=== PATIENT | female | born 1945 | race Caucasian/White ===

== ENCOUNTER 2019-12-18 05:55 | Day surgery (SDC) | payer MEDICARE, OTHER ==
[2019-12-18] MEDS ORDERED: Sodium Chloride 0.9% 10 ML Syringe FLUSH ONE (06:30)
--- NOTE | 2019-12-18 12:15 | OR ---
DATE OF PROCEDURE: 12/18/2019 SURGEON: Mely Hudson MD POSTOPERATIVE CARE: Postoperative care will be provided mainly at the [address] [place] [address] [facility] in conjunction with [facility]. PREOPERATIVE DIAGNOSIS: Cataract, right eye. POSTOPERATIVE DIAGNOSIS: Cataract, right eye. PROCEDURE: Phacoemulsification with intraocular lens placement, right eye. ANESTHESIA: Topical and intracameral. ESTIMATED BLOOD LOSS: Minimal. COMPLICATIONS: None. PATHOLOGY SPECIMENS: None. SURGICAL FINDINGS: None. INDICATION FOR PROCEDURE: The patient is a 74-year-old female with history of a visually significant cataract in the right eye, which interfered with activities of daily living. This consisted of a nuclear sclerosis cataract. Following careful discussion of the risks, benefits and alternatives to cataract extraction with intraocular lens placement including blindness and , the patient elected to proceed, and informed, written consent was obtained prior to the procedure. DESCRIPTION OF THE PROCEDURE: The patient was previously identified, and a mona placed above the right eye. All sources, including the patient, indicated that the right eye was the correct eye. The patient was subsequently taken to the operating room where standard monitors were applied. The patient was then prepped and draped in the usual sterile fashion for ophthalmic surgery. Attention was first directed at the 12 o'clock position where a paracentesis port was fashioned. Shugar solution followed by Viscoat was instilled into the eye. Attention was then directed to the 8:30 position where a triplanar incision was made in a near-clear manner using a keratome. A continuous capsulorrhexis was then made using a combination of the cystotome and Utrata forceps. Hydrodissection was achieved using a balanced salt solution, and the lens rotated nicely. Phacoemulsification was then done using a modified kjguzd-nuc-[id number] technique without complication. Phaco time was 12.39 CDE. The remaining cortex was removed using the irrigation/aspiration handpiece. Provisc was then instilled into the eye. A Technis lens, model [id number], at 19.5 diopters was then placed in the capsular bag using an [place] injector. The remaining viscoelastic was removed using the irrigation/aspiration forceps. All wounds were then checked and found to be watertight. The lid speculum and drapes were removed. Maxitrol ointment was placed in the patient's right eye, and the eye was shielded. The patient tolerated the procedure well. The patient was instructed to follow up tomorrow. All needle and sponge counts were correct at the end of the procedure. Mely Hudson MD /[id number]
== END 2019-12-18 07:56 | disposition home or self-care (01) ==
LOC: JP.SDS 05:55
PROVIDERS: ATTEND Ophthalmology
DX: H25.11 Age-related nuclear cataract, right eye (principal); F17.200 Nicotine dependence, unspecified, uncomplicated; Z88.5 Allergy status to narcotic agent
CPT/HCPCS: 66984; V2632

== ENCOUNTER 2020-01-08 08:58 | Day surgery (SDC) | payer MEDICARE ==
[2020-01-08] MEDS ORDERED: Sodium Chloride 0.9% 10 ML Syringe FLUSH ONE (09:30)
--- NOTE | 2020-01-08 14:15 | OR ---
DATE OF PROCEDURE: 01/08/2020 SURGEON: Mely Hudson MD POSTOPERATIVE CARE: Postoperative care will be provided mainly at the [address] [place] [address] [facility] in conjunction with [facility]. PREOPERATIVE DIAGNOSIS: Cataract, left eye. POSTOPERATIVE DIAGNOSIS: Cataract, left eye. PROCEDURE: Phacoemulsification with intraocular lens placement, left eye. ANESTHESIA: Topical and intracameral. ESTIMATED BLOOD LOSS: Minimal. COMPLICATIONS: None. PATHOLOGY SPECIMENS: None. SURGICAL FINDINGS: None. INDICATION FOR PROCEDURE: The patient is a 74-year-old female with history of a visually significant cataract in the left eye, which interfered with activities of daily living. This consisted of a nuclear sclerosis cataract. Following careful discussion of the risks, benefits and alternatives to cataract extraction with intraocular lens placement including blindness and , the patient elected to proceed, and informed, written consent was obtained prior to the procedure. DESCRIPTION OF THE PROCEDURE: The patient was previously identified, and a mona placed above the left eye. All sources, including the patient, indicated that the left eye was the correct eye. The patient was subsequently taken to the operating room where standard monitors were applied. The patient was then prepped and draped in the usual sterile fashion for ophthalmic surgery. Attention was first directed at the 12 o'clock position where a paracentesis port was fashioned. Shugar solution followed by Viscoat was instilled into the eye. Attention was then directed to the 8:30 position where a triplanar incision was made in a near-clear manner using a keratome. A continuous capsulorrhexis was then made using a combination of the cystotome and Utrata forceps. Hydrodissection was achieved using a balanced salt solution, and the lens rotated nicely. Phacoemulsification was then done using a modified [id number]-pad-mvypzii technique without complication. Phaco time was 11.66 CDE. The remaining cortex was removed using the irrigation/aspiration handpiece. Provisc was then instilled into the eye. A Technis lens, model [id number], at 18.0 diopters was then placed in the capsular bag using an [place] injector. The remaining viscoelastic was removed using the irrigation/aspiration forceps. All wounds were then checked and found to be watertight. The lid speculum and drapes were removed. Maxitrol ointment was placed in the patient's left eye, and the eye was shielded. The patient tolerated the procedure well. The patient was instructed to follow up tomorrow. All needle and sponge counts were correct at the end of the procedure. Mely Hudson MD /[id number]
== END 2020-01-08 10:02 | disposition home or self-care (01) ==
LOC: JP.SDS 08:58
PROVIDERS: ATTEND Ophthalmology
DX: H25.12 Age-related nuclear cataract, left eye (principal); E78.5 Hyperlipidemia, unspecified; F17.200 Nicotine dependence, unspecified, uncomplicated; Z88.5 Allergy status to narcotic agent
CPT/HCPCS: 66984; V2632

== ENCOUNTER 2023-01-22 06:42 | Day surgery (SDC) | payer MEDICARE ==
[2023-01-22] MEDS ORDERED: Bupivacaine 0.5% 50 ML MDV ONE (06:45)
[2023-01-22] MEDS ORDERED: Lidocaine 1% with EPINEPHrine 1:100,000 50 ML MDV ONE (06:46)
[2023-01-22] MEDS ORDERED: Propofol 200 MG/20 ML SDV ONE ×2 (06:51→09:20)
[2023-01-22] MEDS ORDERED: fentaNYL 100 MCG/2 ML SDV ONE (06:51)
[2023-01-22] MEDS ORDERED: Midazolam 1 MG/ML 2 ML SDV ONE (06:51)
[2023-01-22] MEDS ORDERED: Dextrose 5%-Lactated Ringers 1,000 ML IV SCH (07:30)
[2023-01-22] MEDS ORDERED: ceFAZolin 2 GM in Premix Bag 1 BAG IV ONE (08:30)
[2023-01-22] MEDS ORDERED: Linezolid 600 MG/300 ML Premix Bag ONE (09:21)
== END 2023-01-22 11:15 | disposition home or self-care (01) ==
LOC: JP.SDS 06:42
PROVIDERS: ATTEND Surgery
DX: Z45.2 Encounter for adjustment and management of vascular access device (principal); C34.90 Malignant neoplasm of unspecified part of unspecified bronchus or lung; I10 Essential (primary) hypertension; F17.200 Nicotine dependence, unspecified, uncomplicated; Z88.5 Allergy status to narcotic agent; Z86.73 Personal history of transient ischemic attack (TIA), and cerebral infarction without residual deficits
CPT/HCPCS: 36561; 77001; C1788; J0690; J1642; J2020; J2250; J2704; J3010; J3490; J7121

== ENCOUNTER 2023-04-30 14:53 | Emergency (ER) | payer MEDICARE ==
[2023-04-30] MEDS ORDERED: Apixaban 5 MG Tab PO ONE (19:15)
== END 2023-04-30 19:41 | disposition home or self-care (01) ==
LOC: JP.ED 14:53
DX: I82.402 Acute embolism and thrombosis of unspecified deep veins of left lower extremity (principal); Z85.118 Personal history of other malignant neoplasm of bronchus and lung; I10 Essential (primary) hypertension; Z90.710 Acquired absence of both cervix and uterus; Z88.5 Allergy status to narcotic agent; Z79.82 Long term (current) use of aspirin; Z79.84 Long term (current) use of oral hypoglycemic drugs; Z79.899 Other long term (current) drug therapy; Z87.891 Personal history of nicotine dependence
CPT/HCPCS: 36415; 85379; 93970; 99284; A9270-GY

== ENCOUNTER 2023-05-04 21:28 | Inpatient (IN) | payer MEDICARE ==
[2023-05-04] MEDS ORDERED: Naloxone 0.4 MG/ML SDV IVPUSH PRN (21:52)
[2023-05-04] MEDS ORDERED: fentaNYL 50 MCG/ML SDV IVPUSH ONE ×2 (21:52→22:17)
[2023-05-04 22:06] LABS: BASOPHILS ABSOLUTE AUTO 0.04 K/uL (0.00-0.10); BASOPHILS PERCENT AUTO 0.5 % (0.1-1.3); EOSINOPHILS ABSOLUTE AUTO 0.14 K/uL (0.00-0.40); EOSINOPHILS PERCENT AUTO 1.8 % (0.0-5.4); HEMATOCRIT 33.3 % (34.3-46.0); HEMOGLOBIN 10.7 g/dL (11.2-15.5); IMMATURE GRAN ABSOLUTE AUTO 0.03 K/uL (0.00-0.23); IMMATURE GRAN PERCENT AUTO 0.4 % (0.0-0.7); LYMPHOCYTES ABSOLUTE AUTO 1.47 K/uL (0.8-3.3); MEAN CORPUSCULAR HEMOGLOBIN 29.1 pg (31.6-35.5); MEAN CORPUSCULAR HGB CONC 32.1 g/dL (31.6-35.5); MEAN CORPUSCULAR VOLUME 90.5 fL (81.4-99.0); MONOCYTES ABSOLUTE AUTO 0.92 K/uL (0.20-0.90); MONOCYTES PERCENT AUTO 11.9 % (3.3-12.6); NEUTROPHILS ABSOLUTE AUTO 5.14 K/uL (1.0-7.6); NEUTROPHILS PERCENT AUTO 66.4 % (40.0-78.1); PLATELET COUNT,PLT 278 K/uL (130-375); RED BLOOD CELL COUNT 3.68 M/uL (3.77-5.24); WHITE BLOOD CELL COUNT,WBC 7.7 K/uL (3.2-11.0)
[2023-05-04 22:22] LABS: INR 1.2; PROTHROMBIN TIME 11.6 sec (9.2-10.6)
[2023-05-04 22:30] LABS: ALANINE AMINOTRANSFERASE,ALT 43 U/L (12-78); ALBUMIN 3.5 g/dL (3.4-5.0); ALKALINE PHOSPHATASE 117 U/L (46-116); ANION GAP 16.4 mmol/L (5.0-14.0); ASPARTATE AMNIOTRANSFERASE,AST 20 U/L (15-37); BILIRUBIN TOTAL 0.3 mg/dL (0.2-1.0); BLOOD UREA NITROGEN,BUN 16 mg/dL (7-18); C-REACTIVE PROTEIN 1.26 mg/dL (<0.50); CARBON DIOXIDE,CO2 25 mmol/L (21-32); CHLORIDE,CL 100 mmol/L (100-108); CREATININE 0.7 mg/dL (0.6-1.0); EST CRCL DRUG DOSING (CG) 51.59 mL/min; ESTIMATED GFR 90 mL/min (>60); GLUCOSE RANDOM 119 mg/dL (74-106); POTASSIUM,K 4.4 mmol/L (3.6-5.2); SODIUM,NA 137 mmol/L (140-148); TROPONIN I HIGH SENSITIVITY 10.2 pg/mL (<=60.3)
[2023-05-04] MEDS ORDERED: Iopamidol 755 Mg/ML 100 ML Bottle IV SCH (22:45)
[2023-05-04] MEDS ORDERED: Sodium Chloride 0.9% 100 ML IV SCH (22:45)
[2023-05-04 23:01] LABS: APPEARANCE,URINE CLOUDY (CLEAR); BILIRUBIN,URINE NEGATIVE (NEGATIVE); COLOR,URINE YELLOW (YELLOW); GLUCOSE,URINE NEGATIVE (NEGATIVE); KETONES,URINE NEGATIVE (NEGATIVE); LEUKOCYTE ESTERASE,URINE MODERATE (NEGATIVE); NITRITE,URINE POSITIVE (NEGATIVE); OCCULT BLOOD,URINE SMALL (NEGATIVE); PH,URINE 5.5 (5.0-8.0); PROTEIN,URINE 30 mg/dL (NEGATIVE); UROBILINOGEN,URINE 0.2 EU/dL (0.2-1.0)
[2023-05-04] MEDS ORDERED: Ondansetron 4 MG/2 ML SDV IVPUSH ONE (23:13)
[2023-05-04 23:14] LABS: AMORPHOUS SEDIMENT,URINE NOT SEEN; BACTERIA,URINE MANY; EPITHELIAL CELLS,URINE FEW; MUCUS,URINE NOT SEEN; RBC,URINE 0-5 (0-5); WBC,URINE >100 (0-5)
[2023-05-05] MEDS ORDERED: Scopalamine 1mg/3day Transdermal Patch TOP ONE (00:29)
[2023-05-05] MEDS ORDERED: Lisinopril 10 MG Tab PO STA (00:30)
[2023-05-05] MEDS ORDERED: Metoprolol Tartrate 25 MG Tab PO STA (00:30)
[2023-05-05] MEDS ORDERED: fentaNYL 50 MCG/ML SDV IVPUSH ONE (00:30)
[2023-05-05] MEDS ORDERED: Metoclopramide 10 MG/2 ML SDV IVPUSH ONE (00:30)
[2023-05-05 00:53] LABS: CORONAVIRUS COVID-19 NAA NEGATIVE (NEGATIVE); INFLUENZA A NAA NEGATIVE (NEGATIVE); INFLUENZA B NAA NEGATIVE (NEGATIVE); RESPIRATORY SYNCYTIAL VIR NAA NEGATIVE (NEGATIVE)
[2023-05-05] MEDS ORDERED: Melatonin 3 MG Tab PO PRN (02:22)
[2023-05-05] MEDS ORDERED: Ondansetron 4 MG/2 ML SDV IV PRN (02:22)
[2023-05-05] MEDS ORDERED: Acetaminophen 325 MG Tab PO PRN (02:22)
[2023-05-05] MEDS ORDERED: Magnesium Hydroxide 400 MG/5 ML Susp 30 ML Cup PO PRN (02:22)
[2023-05-05] MEDS ORDERED: Ondansetron 4 MG Tab.DIS PO PRN (02:22)
[2023-05-05] MEDS ORDERED: traMADol 50 MG Tab PO PRN (02:39)
[2023-05-05] MEDS ORDERED: Enoxaparin 80 MG/0.8 ML Syringe SUBCUT ONE (02:45)
[2023-05-05] MEDS ORDERED: Piperacillin/Tazobactam 3.375 GM in Sodium Chloride 0.9% 50 ML IV SCH (03:00)
[2023-05-05] MEDS: fentaNYL 100 MCG/2 ML SDV IVPUSH PRN ×3 (03:14→21:01)
[2023-05-05] MEDS ORDERED: Metoclopramide 10 MG/2 ML SDV IVPUSH SCH (03:30)
[2023-05-05] MEDS ORDERED: Metoclopramide 10 MG/2 ML SDV IVPUSH PRN (03:35)
[2023-05-05 04:50] LABS: HEMATOCRIT 33.6 % (34.3-46.0); HEMOGLOBIN 10.9 g/dL (11.2-15.5); MEAN CORPUSCULAR HEMOGLOBIN 29.5 pg (31.6-35.5); MEAN CORPUSCULAR HGB CONC 32.4 g/dL (31.6-35.5); MEAN CORPUSCULAR VOLUME 91.1 fL (81.4-99.0); RED BLOOD CELL COUNT 3.69 M/uL (3.77-5.24); WHITE BLOOD CELL COUNT,WBC 8.2 K/uL (3.2-11.0)
[2023-05-05] MEDS: Labetalol 20 MG/4 ML Syringe IVPUSH PRN ×3 (04:59→15:58)
[2023-05-05 05:07] LABS: CALCIUM 8.8 mg/dL (8.5-10.1); CREATININE 0.6 mg/dL (0.6-1.0); EST CRCL DRUG DOSING (CG) 60.19 mL/min; POTASSIUM,K 3.9 mmol/L (3.6-5.2)
[2023-05-05 05:15] LABS: ANION GAP 15.9 mmol/L (5.0-14.0)
[2023-05-05] MEDS: Methocarbamol 500 MG Tab PO SCH ×4 (07:43→21:05)
[2023-05-05] MEDS: Pantoprazole 40 MG Tab.CR PO SCH (07:43)
[2023-05-05] MEDS: Lactobacillus Rhamnosus GG (Probiotic) Cap PO SCH ×2 (08:10→20:54)
[2023-05-05] MEDS: Metoprolol Tartrate 25 MG Tab PO SCH ×2 (08:10→20:55)
[2023-05-05] MEDS: Check scopolamine patch SCH (08:12)
[2023-05-05] MEDS: Lisinopril 10 MG Tab PO SCH (08:13)
[2023-05-05] MEDS: Oxybutynin 5 MG Tab PO SCH ×3 (08:13→21:05)
[2023-05-05] MEDS ORDERED: Piperacillin/Tazobactam/Dext 3.375 GM in Premix Bag 1 BAG IV SCH (09:00)
[2023-05-05] MEDS: cefTRIAXone 1 GM in Sodium Chloride 0.9% 50 ML IV SCH (10:42)
[2023-05-05] MEDS ORDERED: Warfarin 2.5 MG Tab PO ONE (13:00)
[2023-05-05] MEDS: Phenazopyridine 95 MG Tab PO SCH ×2 (13:32→18:18)
[2023-05-05] MEDS: Enoxaparin 80 MG/0.8 ML Syringe SUBCUT SCH (17:00)
[2023-05-05] MEDS: Acetaminophen 500 MG Tab PO SCH (20:56)
[2023-05-05] MEDS: diphenhydrAMINE 25 MG Cap PO SCH (21:07)
[2023-05-06 05:27] LABS: INR 1.2; PROTHROMBIN TIME 11.9 sec (9.2-10.6)
[2023-05-06] MEDS: Enoxaparin 80 MG/0.8 ML Syringe SUBCUT SCH ×2 (05:45→17:56)
[2023-05-06] MEDS: Methocarbamol 500 MG Tab PO SCH ×4 (06:39→22:18)
[2023-05-06] MEDS: Phenazopyridine 95 MG Tab PO SCH ×3 (08:02→17:57)
[2023-05-06] MEDS: Metoprolol Tartrate 25 MG Tab PO SCH ×2 (08:02→22:18)
[2023-05-06] MEDS: Lactobacillus Rhamnosus GG (Probiotic) Cap PO SCH ×2 (08:02→22:18)
[2023-05-06] MEDS: Pantoprazole 40 MG Tab.CR PO SCH (08:02)
[2023-05-06] MEDS: Oxybutynin 5 MG Tab PO SCH ×3 (08:02→22:18)
[2023-05-06] MEDS: Lisinopril 10 MG Tab PO SCH (08:02)
[2023-05-06] MEDS: Check scopolamine patch SCH (08:03)
[2023-05-06] MEDS: cefTRIAXone 1 GM in Sodium Chloride 0.9% 50 ML IV SCH (11:23)
[2023-05-06] MEDS: oxyCODONE 5 MG Tab PO PRN ×2 (12:01→16:05)
[2023-05-06] MEDS ORDERED: Warfarin 2.5 MG Tab PO ONE (13:00)
[2023-05-06] MEDS: Sennosides/Docusate Sodium 50-8.6 MG Tab PO PRN (15:45)
[2023-05-06] MEDS: fentaNYL 100 MCG/2 ML SDV IVPUSH PRN (19:44)
[2023-05-06] MEDS: Acetaminophen 500 MG Tab PO SCH (22:18)
[2023-05-06] MEDS: diphenhydrAMINE 25 MG Cap PO SCH (22:18)
[2023-05-07] MEDS: oxyCODONE 5 MG Tab PO PRN ×4 (02:14→20:20)
[2023-05-07] MEDS: Enoxaparin 80 MG/0.8 ML Syringe SUBCUT SCH ×2 (06:08→17:34)
[2023-05-07] MEDS: Methocarbamol 500 MG Tab PO SCH ×4 (06:10→22:05)
[2023-05-07 07:06] LABS: INR 1.7; PROTHROMBIN TIME 16.3 sec (9.2-10.6)
[2023-05-07] MEDS: Lactobacillus Rhamnosus GG (Probiotic) Cap PO SCH ×2 (08:46→22:05)
[2023-05-07] MEDS: Metoprolol Tartrate 25 MG Tab PO SCH ×2 (08:46→22:04)
[2023-05-07] MEDS: Phenazopyridine 95 MG Tab PO SCH (08:47)
[2023-05-07] MEDS: Lisinopril 10 MG Tab PO SCH (08:47)
[2023-05-07] MEDS: Check scopolamine patch SCH (08:47)
[2023-05-07] MEDS: Oxybutynin 5 MG Tab PO SCH ×3 (08:47→22:05)
[2023-05-07] MEDS: Pantoprazole 40 MG Tab.CR PO SCH (08:48)
[2023-05-07] MEDS: Cephalexin 250 MG Cap PO SCH ×2 (08:48→22:05)
[2023-05-07] MEDS: fentaNYL 100 MCG/2 ML SDV IVPUSH PRN ×2 (12:37→22:46)
[2023-05-07] MEDS ORDERED: Warfarin 5 MG Tab PO SCH (13:00)
[2023-05-07] MEDS ORDERED: Scopalamine 1mg/3day Transdermal Patch TRDERM SCH (21:00)
[2023-05-07] MEDS: Acetaminophen 500 MG Tab PO SCH (22:05)
[2023-05-07] MEDS: diphenhydrAMINE 25 MG Cap PO SCH (22:06)
[2023-05-08] MEDS: Enoxaparin 80 MG/0.8 ML Syringe SUBCUT SCH (05:24)
[2023-05-08] MEDS: Methocarbamol 500 MG Tab PO SCH ×4 (05:26→21:16)
[2023-05-08] MEDS: oxyCODONE 5 MG Tab PO PRN ×4 (05:31→19:55)
[2023-05-08 06:01] LABS: HEMATOCRIT 29.6 % (34.3-46.0); HEMOGLOBIN 9.6 g/dL (11.2-15.5); MEAN CORPUSCULAR HEMOGLOBIN 29.5 pg (31.6-35.5); MEAN CORPUSCULAR HGB CONC 32.4 g/dL (31.6-35.5); MEAN CORPUSCULAR VOLUME 91.1 fL (81.4-99.0); RED BLOOD CELL COUNT 3.25 M/uL (3.77-5.24); WHITE BLOOD CELL COUNT,WBC 6.8 K/uL (3.2-11.0)
[2023-05-08 06:13] LABS: INR 3.7; PROTHROMBIN TIME 34.7 sec (9.2-10.6)
[2023-05-08 06:15] LABS: CALCIUM 8.3 mg/dL (8.5-10.1); CREATININE 0.6 mg/dL (0.6-1.0); EST CRCL DRUG DOSING (CG) 60.19 mL/min; POTASSIUM,K 3.6 mmol/L (3.6-5.2)
[2023-05-08 06:34] LABS: ANION GAP 14.6 mmol/L (5.0-14.0)
[2023-05-08] MEDS: Pantoprazole 40 MG Tab.CR PO SCH (07:44)
[2023-05-08] MEDS: Cephalexin 250 MG Cap PO SCH ×2 (08:00→21:17)
[2023-05-08] MEDS: Lactobacillus Rhamnosus GG (Probiotic) Cap PO SCH ×2 (08:00→21:17)
[2023-05-08] MEDS: Sennosides/Docusate Sodium 50-8.6 MG Tab PO PRN (08:00)
[2023-05-08] MEDS: Metoprolol Tartrate 25 MG Tab PO SCH ×2 (08:01→21:17)
[2023-05-08] MEDS: Check scopolamine patch SCH (08:02)
[2023-05-08] MEDS: Lisinopril 10 MG Tab PO SCH (08:03)
[2023-05-08] MEDS: Oxybutynin 5 MG Tab PO SCH ×3 (08:04→21:16)
[2023-05-08] MEDS: fentaNYL 100 MCG/2 ML SDV IVPUSH PRN (20:00)
[2023-05-08] MEDS: Acetaminophen 500 MG Tab PO SCH (21:17)
[2023-05-08] MEDS: diphenhydrAMINE 25 MG Cap PO SCH (21:17)
[2023-05-09] MEDS: oxyCODONE 5 MG Tab PO PRN ×3 (00:30→10:18)
[2023-05-09] MEDS: Methocarbamol 500 MG Tab PO SCH ×2 (05:13→10:18)
[2023-05-09 05:29] LABS: HEMOGLOBIN 9.7 g/dL (11.2-15.5); MEAN CORPUSCULAR HEMOGLOBIN 29.5 pg (31.6-35.5); MEAN CORPUSCULAR HGB CONC 32.3 g/dL (31.6-35.5); MEAN CORPUSCULAR VOLUME 91.2 fL (81.4-99.0); RED BLOOD CELL COUNT 3.29 M/uL (3.77-5.24); WHITE BLOOD CELL COUNT,WBC 6.1 K/uL (3.2-11.0)
[2023-05-09 05:47] LABS: INR 2.6; PROTHROMBIN TIME 24.9 sec (9.2-10.6)
[2023-05-09] MEDS: Sennosides/Docusate Sodium 50-8.6 MG Tab PO PRN (08:15)
[2023-05-09] MEDS: Cephalexin 250 MG Cap PO SCH (08:18)
[2023-05-09] MEDS: Oxybutynin 5 MG Tab PO SCH (08:18)
[2023-05-09] MEDS: Pantoprazole 40 MG Tab.CR PO SCH (08:18)
[2023-05-09] MEDS: Lactobacillus Rhamnosus GG (Probiotic) Cap PO SCH (08:18)
[2023-05-09] MEDS: Lisinopril 10 MG Tab PO SCH (08:18)
[2023-05-09] MEDS: Metoprolol Tartrate 25 MG Tab PO SCH (08:20)
[2023-05-09] MEDS: Check scopolamine patch SCH (08:23)
[2023-05-09] MEDS ORDERED: Bisacodyl 10 MG Supp RECTAL ONE (09:00)
[2023-05-09] MEDS ORDERED: fentaNYL 50 MCG/ML SDV IVPUSH PRN (10:00)
== END 2023-05-09 11:00 | DRG 175 ==
LOC: JP.ED 21:28 → JP.ICU 05-05 01:14
PROVIDERS: ADMIT Registered Nurse; ATTEND Internal Medicine
DX: I26.94 Multiple subsegmental thrombotic pulmonary emboli without acute cor pulmonale (principal); J96.01 Acute respiratory failure with hypoxia; N30.01 Acute cystitis with hematuria; I82.402 Acute embolism and thrombosis of unspecified deep veins of left lower extremity; I16.1 Hypertensive emergency; C34.90 Malignant neoplasm of unspecified part of unspecified bronchus or lung; B96.20 Unspecified Escherichia coli [E. coli] as the cause of diseases classified elsewhere; I10 Essential (primary) hypertension; E78.00 Pure hypercholesterolemia, unspecified; G62.9 Polyneuropathy, unspecified; M48.061 Spinal stenosis, lumbar region without neurogenic claudication; Z98.890 Other specified postprocedural states; Z79.82 Long term (current) use of aspirin; Z79.899 Other long term (current) drug therapy; Z88.5 Allergy status to narcotic agent; Z79.01 Long term (current) use of anticoagulants; Z86.010 Personal history of colon polyps; Z86.73 Personal history of transient ischemic attack (TIA), and cerebral infarction without residual deficits; Z98.49 Cataract extraction status, unspecified eye; Z90.710 Acquired absence of both cervix and uterus; Z87.891 Personal history of nicotine dependence; Z11.52 Encounter for screening for COVID-19
CPT/HCPCS: 0241U; 36415; 71045; 71275; 80048; 80053; 81001; 84145; 84484; 85025; 85027; 85610; 86140; 87086; 87088; 87186; 93005; 96374; 96375; 96376; 97161; 97165; 97530; 99285; 93010; A9270-GY; J0696; J1650; J2405; J2543; J2765; J3010; J3490; Q9967

== ENCOUNTER 2023-05-11 18:28 | Emergency (ER) | payer MEDICARE ==
[2023-05-11] MEDS ORDERED: Albuterol/Ipratropium 3.0-0.5 MG/3 ML Neb Soln NEB ONE (19:05)
[2023-05-11 19:20] LABS: BASOPHILS ABSOLUTE AUTO 0.03 K/uL (0.00-0.10); BASOPHILS PERCENT AUTO 0.5 % (0.1-1.3); EOSINOPHILS ABSOLUTE AUTO 0.04 K/uL (0.00-0.40); EOSINOPHILS PERCENT AUTO 0.7 % (0.0-5.4); HEMATOCRIT 29.4 % (34.3-46.0); HEMOGLOBIN 9.5 g/dL (11.2-15.5); IMMATURE GRAN ABSOLUTE AUTO 0.03 K/uL (0.00-0.23); IMMATURE GRAN PERCENT AUTO 0.5 % (0.0-0.7); LYMPHOCYTES ABSOLUTE AUTO 0.88 K/uL (0.8-3.3); MEAN CORPUSCULAR HEMOGLOBIN 29.1 pg (31.6-35.5); MEAN CORPUSCULAR HGB CONC 32.3 g/dL (31.6-35.5); MEAN CORPUSCULAR VOLUME 90.2 fL (81.4-99.0); MONOCYTES PERCENT AUTO 14.5 % (3.3-12.6); NEUTROPHILS ABSOLUTE AUTO 3.73 K/uL (1.0-7.6); NEUTROPHILS PERCENT AUTO 67.8 % (40.0-78.1); PLATELET COUNT,PLT 161 K/uL (130-375); RED BLOOD CELL COUNT 3.26 M/uL (3.77-5.24); WHITE BLOOD CELL COUNT,WBC 5.5 K/uL (3.2-11.0)
[2023-05-11 19:38] LABS: CORONAVIRUS COVID-19 NAA NEGATIVE (NEGATIVE); INFLUENZA A NAA NEGATIVE (NEGATIVE); INFLUENZA B NAA NEGATIVE (NEGATIVE); RESPIRATORY SYNCYTIAL VIR NAA NEGATIVE (NEGATIVE)
[2023-05-11 19:48] LABS: ANION GAP 13.1 mmol/L (5.0-14.0); CALCIUM 8.2 mg/dL (8.5-10.1); CREATININE 0.6 mg/dL (0.6-1.0); EST CRCL DRUG DOSING (CG) 60.19 mL/min; POTASSIUM,K 4.1 mmol/L (3.6-5.2)
[2023-05-11 20:12] LABS: INR 3.5; PROTHROMBIN TIME 32.6 sec (9.2-10.6)
[2023-05-11] MEDS ORDERED: oxyCODONE 5 MG Tab PO ONE (21:37)
== END 2023-05-11 22:08 ==
LOC: JP.ED 18:28
DX: J44.0 Chronic obstructive pulmonary disease with (acute) lower respiratory infection (principal); J20.9 Acute bronchitis, unspecified; I10 Essential (primary) hypertension; Z87.891 Personal history of nicotine dependence; Z86.73 Personal history of transient ischemic attack (TIA), and cerebral infarction without residual deficits; Z79.01 Long term (current) use of anticoagulants; Z79.899 Other long term (current) drug therapy; Z79.82 Long term (current) use of aspirin; Z90.710 Acquired absence of both cervix and uterus; Z88.5 Allergy status to narcotic agent; Z20.822 Contact with and (suspected) exposure to COVID-19
CPT/HCPCS: 0241U; 36415; 71045; 71250; 80048; 83605; 83880; 85025; 85610; 94640; 99285; A9270; J7620

== ENCOUNTER 2023-05-13 12:35 | Emergency (ER) | payer MEDICARE ==
[2023-05-13] MEDS ORDERED: Sodium Chloride 0.9% 10 ML Syringe FLUSH PRN (13:12)
[2023-05-13] MEDS ORDERED: Sodium Chloride 0.9% 1,000 ML IV ONE (13:14)
[2023-05-13 13:31] LABS: BASOPHILS PERCENT AUTO 0.2 % (0.1-1.3); HEMATOCRIT 32.9 % (34.3-46.0); HEMOGLOBIN 10.8 g/dL (11.2-15.5); IMMATURE GRAN ABSOLUTE AUTO 0.04 K/uL (0.00-0.23); IMMATURE GRAN PERCENT AUTO 0.7 % (0.0-0.7); LYMPHOCYTES ABSOLUTE AUTO 0.31 K/uL (0.8-3.3); LYMPHOCYTES PERCENT AUTO 5.3 % (11.4-47.7); MEAN CORPUSCULAR HEMOGLOBIN 29.3 pg (31.6-35.5); MEAN CORPUSCULAR HGB CONC 32.8 g/dL (31.6-35.5); MEAN CORPUSCULAR VOLUME 89.2 fL (81.4-99.0); MONOCYTES ABSOLUTE AUTO 0.17 K/uL (0.20-0.90); MONOCYTES PERCENT AUTO 2.9 % (3.3-12.6); NEUTROPHILS ABSOLUTE AUTO 5.32 K/uL (1.0-7.6); NEUTROPHILS PERCENT AUTO 90.9 % (40.0-78.1); PLATELET COUNT,PLT 139 K/uL (130-375); RED BLOOD CELL COUNT 3.69 M/uL (3.77-5.24); WHITE BLOOD CELL COUNT,WBC 5.9 K/uL (3.2-11.0)
[2023-05-13 13:32] LABS: BASOPHILS ABSOLUTE AUTO 0.01 K/uL (0.00-0.10)
[2023-05-13 13:49] LABS: PROTHROMBIN TIME 37.9 sec (9.2-10.6)
[2023-05-13 13:56] LABS: C-REACTIVE PROTEIN 11.24 mg/dL (<0.50); CALCIUM 8.2 mg/dL (8.5-10.1); CREATININE 0.7 mg/dL (0.6-1.0); EST CRCL DRUG DOSING (CG) 49.11 mL/min; POTASSIUM,K 3.7 mmol/L (3.6-5.2)
[2023-05-13 13:57] LABS: ANION GAP 16.7 mmol/L (5.0-14.0)
[2023-05-13 13:58] LABS: ALANINE AMINOTRANSFERASE,ALT 48 U/L (12-78); ALBUMIN 3.2 g/dL (3.4-5.0); ALKALINE PHOSPHATASE 87 U/L (46-116); ASPARTATE AMNIOTRANSFERASE,AST 39 U/L (15-37); BILIRUBIN DIRECT 0.09 mg/dL (0.0-0.2); BILIRUBIN TOTAL 0.5 mg/dL (0.2-1.0); INR 4.1; PROTEIN TOTAL,TP 6.5 g/dL (6.4-8.2)
[2023-05-13 14:13] LABS: LACTIC ACID 1.4 mmol/L (0.4-2.0)
[2023-05-13] MEDS ORDERED: Iopamidol 612 MG/ML 100 ML Bottle IV SCH (14:15)
[2023-05-13] MEDS ORDERED: Sodium Chloride 0.9% 50 ML IV SCH (14:15)
[2023-05-13 14:51] LABS: APPEARANCE,URINE CLEAR (CLEAR); COLOR,URINE YELLOW (YELLOW); PH,URINE 5.5 (5.0-8.0)
[2023-05-13 14:52] LABS: BILIRUBIN,URINE NEGATIVE (NEGATIVE); GLUCOSE,URINE NEGATIVE (NEGATIVE); KETONES,URINE TRACE mg/dL (NEGATIVE); LEUKOCYTE ESTERASE,URINE NEGATIVE (NEGATIVE); NITRITE,URINE NEGATIVE (NEGATIVE); OCCULT BLOOD,URINE NEGATIVE (NEGATIVE); PROTEIN,URINE TRACE mg/dL (NEGATIVE); RBC,URINE NOT SEEN (0-5); UROBILINOGEN,URINE 0.2 EU/dL (0.2-1.0); WBC,URINE 0-5 (0-5)
[2023-05-13 14:53] LABS: BACTERIA,URINE RARE; EPITHELIAL CELLS,URINE MODERATE
[2023-05-13] MEDS ORDERED: Ondansetron 4 MG Tab.DIS PO ONE (15:51)
== END 2023-05-13 16:10 ==
LOC: JP.ED 12:35
DX: R11.2 Nausea with vomiting, unspecified (principal); R79.1 Abnormal coagulation profile; I10 Essential (primary) hypertension; Z90.710 Acquired absence of both cervix and uterus; Z79.899 Other long term (current) drug therapy; Z79.82 Long term (current) use of aspirin; Z88.5 Allergy status to narcotic agent
CPT/HCPCS: 36415; 74177; 80048; 80076; 81001; 83605; 84145; 85025; 85610; 86140; 87040; 96360; 99284; J3490; J7030; Q0162; Q9967

== ENCOUNTER 2023-05-13 22:40 | Inpatient (IN) | payer MEDICARE ==
[2023-05-13] MEDS ORDERED: Ibuprofen 600 MG Tab PO ONE (23:19)
[2023-05-13] MEDS ORDERED: diphenhydrAMINE 50 MG/ML SDV IM ONE (23:40)
[2023-05-14 00:09] LABS: BASOPHILS ABSOLUTE AUTO 0.01 K/uL (0.00-0.10); BASOPHILS PERCENT AUTO 0.1 % (0.1-1.3); HEMATOCRIT 33.1 % (34.3-46.0); IMMATURE GRAN ABSOLUTE AUTO 0.04 K/uL (0.00-0.23); IMMATURE GRAN PERCENT AUTO 0.6 % (0.0-0.7); LYMPHOCYTES ABSOLUTE AUTO 0.51 K/uL (0.8-3.3); LYMPHOCYTES PERCENT AUTO 7.4 % (11.4-47.7); MEAN CORPUSCULAR HEMOGLOBIN 29.3 pg (31.6-35.5); MEAN CORPUSCULAR HGB CONC 33.2 g/dL (31.6-35.5); MONOCYTES PERCENT AUTO 2.9 % (3.3-12.6); NEUTROPHILS ABSOLUTE AUTO 6.14 K/uL (1.0-7.6); PLATELET COUNT,PLT 118 K/uL (130-375); RED BLOOD CELL COUNT 3.76 M/uL (3.77-5.24); WHITE BLOOD CELL COUNT,WBC 6.9 K/uL (3.2-11.0)
[2023-05-14 00:28] LABS: ANION GAP 13.7 mmol/L (5.0-14.0); CALCIUM 7.7 mg/dL (8.5-10.1); CREATININE 0.7 mg/dL (0.6-1.0); EST CRCL DRUG DOSING (CG) 48.96 mL/min; POTASSIUM,K 3.7 mmol/L (3.6-5.2)
[2023-05-14] MEDS ORDERED: Sodium Chloride 0.9% 10 ML Syringe FLUSH PRN (00:33)
[2023-05-14] MEDS ORDERED: methylPREDNISolone Sodium Succinate 40 MG/1 ML SDV IVPUSH ONE (00:33)
[2023-05-14] MEDS ORDERED: Sodium Chloride 0.9% 1,000 ML IV SCH ×4 (00:45→12:45)
[2023-05-14 01:41] LABS: CORONAVIRUS COVID-19 NAA NEGATIVE (NEGATIVE); INFLUENZA A NAA NEGATIVE (NEGATIVE); INFLUENZA B NAA NEGATIVE (NEGATIVE); RESPIRATORY SYNCYTIAL VIR NAA NEGATIVE (NEGATIVE)
[2023-05-14 03:34] LABS: BASE EXCESS ARTERIAL -4.2 mm/L; BICARBONATE,ARTERIAL 18.3 mmol/L (22.0-26.0); CARBOXYHEMOGLOBIN 1.6 % (0.0-1.6); METHEMOGLOBIN 1.2 %; O2 SATURATION ARTERIAL 96.1 % (95.0-98.0); OXYHEMOGLOBIN 93.4 %; PCO2 ARTERIAL 26.4 mmHg (35.0-42.0); PO2 ARTERIAL 77.4 mmHg (75.0-100.0)
[2023-05-14] MEDS ORDERED: Melatonin 3 MG Tab PO PRN (05:45)
[2023-05-14] MEDS ORDERED: Ondansetron 4 MG Tab.DIS PO PRN (05:45)
[2023-05-14] MEDS ORDERED: Ondansetron 4 MG/2 ML SDV IV PRN (05:45)
[2023-05-14] MEDS ORDERED: Sennosides/Docusate Sodium 50-8.6 MG Tab PO PRN (05:45)
[2023-05-14] MEDS ORDERED: Warfarin 5 MG Tab PO SCH (05:45)
[2023-05-14 05:57] LABS: PROTHROMBIN TIME 37.5 sec (9.2-10.6)
[2023-05-14] MEDS ORDERED: cefTRIAXone 1 GM in Sodium Chloride 0.9% 50 ML IV SCH (07:00)
[2023-05-14] MEDS: Lactobacillus Rhamnosus GG (Probiotic) Cap PO SCH ×2 (09:45→21:13)
[2023-05-14] MEDS: Aspirin 81 MG Tab.Chew PO SCH (09:45)
[2023-05-14] MEDS: Oxybutynin 5 MG Tab PO SCH ×3 (09:46→21:14)
[2023-05-14] MEDS: Metoprolol Tartrate 25 MG Tab PO SCH ×2 (09:46→21:15)
[2023-05-14] MEDS: Lisinopril 10 MG Tab PO SCH (09:48)
[2023-05-14 10:21] LABS: APPEARANCE,URINE CLOUDY (CLEAR); BILIRUBIN,URINE NEGATIVE (NEGATIVE); COLOR,URINE YELLOW (YELLOW); GLUCOSE,URINE NEGATIVE (NEGATIVE); KETONES,URINE 40 mg/dL (NEGATIVE); LEUKOCYTE ESTERASE,URINE NEGATIVE (NEGATIVE); NITRITE,URINE NEGATIVE (NEGATIVE); OCCULT BLOOD,URINE NEGATIVE (NEGATIVE); PH,URINE 5.5 (5.0-8.0); PROTEIN,URINE 30 mg/dL (NEGATIVE); UROBILINOGEN,URINE 0.2 EU/dL (0.2-1.0)
[2023-05-14 10:22] LABS: EPITHELIAL CELLS,URINE MODERATE; RBC,URINE 0-5 (0-5)
[2023-05-14 10:23] LABS: AMORPHOUS SEDIMENT,URINE NOT SEEN; BACTERIA,URINE NOT SEEN; MUCUS,URINE MODERATE
[2023-05-14] MEDS ORDERED: Iopamidol 612 MG/ML 100 ML Bottle IV ONE (11:00)
[2023-05-14] MEDS ORDERED: Sodium Chloride 0.9% 80 ML IV SCH (11:00)
[2023-05-14] MEDS: Clotrimazole 10 MG Troche PO SCH ×4 (13:15→23:05)
[2023-05-14] MEDS: oxyCODONE 5 MG Tab PO PRN ×2 (16:08→21:17)
[2023-05-14] MEDS: Acetaminophen 325 MG Tab PO PRN ×2 (16:42→21:15)
[2023-05-14] MEDS: diphenhydrAMINE 25 MG Cap PO SCH (21:13)
[2023-05-14] MEDS ORDERED: Ibuprofen 400 MG Tab PO ONE (22:23)
[2023-05-14] MEDS ORDERED: Sodium Chloride 0.9% 1,000 ML IV ONE (23:13)
[2023-05-15 05:07] LABS: HEMATOCRIT 28.3 % (34.3-46.0); MEAN CORPUSCULAR HEMOGLOBIN 28.8 pg (31.6-35.5); MEAN CORPUSCULAR HGB CONC 31.8 g/dL (31.6-35.5); MEAN CORPUSCULAR VOLUME 90.4 fL (81.4-99.0); RED BLOOD CELL COUNT 3.13 M/uL (3.77-5.24); WHITE BLOOD CELL COUNT,WBC 6.2 K/uL (3.2-11.0)
[2023-05-15] MEDS: Clotrimazole 10 MG Troche PO SCH ×2 (05:14→10:42)
[2023-05-15 05:22] LABS: CALCIUM 7.3 mg/dL (8.5-10.1); CREATININE 0.8 mg/dL (0.6-1.0); EST CRCL DRUG DOSING (CG) 45.19 mL/min; POTASSIUM,K 3.6 mmol/L (3.6-5.2)
[2023-05-15 05:23] LABS: PROTHROMBIN TIME 46.8 sec (9.2-10.6)
[2023-05-15 05:26] LABS: ANION GAP 12.6 mmol/L (5.0-14.0); INR 5.1
[2023-05-15] MEDS ORDERED: cefTRIAXone 1 GM in Sodium Chloride 0.9% 50 ML IV SCH (08:00)
[2023-05-15] MEDS: Lactobacillus Rhamnosus GG (Probiotic) Cap PO SCH ×2 (08:14→20:01)
[2023-05-15] MEDS: Metoprolol Tartrate 25 MG Tab PO SCH ×2 (08:14→20:01)
[2023-05-15] MEDS: Aspirin 81 MG Tab.Chew PO SCH (08:14)
[2023-05-15] MEDS: Oxybutynin 5 MG Tab PO SCH ×3 (08:16→20:01)
[2023-05-15] MEDS: Lisinopril 10 MG Tab PO SCH (08:16)
[2023-05-15] MEDS ORDERED: Phytonadione 1 MG in Sodium Chloride 0.9% 50 ML IV ONE (09:30)
[2023-05-15] MEDS: oxyCODONE 5 MG Tab PO PRN ×3 (10:10→19:52)
[2023-05-15] MEDS: Nystatin Susp 100,000 Unit/ML 5 ML UD Cup PO SCH ×3 (10:51→21:34)
[2023-05-15] MEDS: Pantoprazole 40 MG Vial IVPUSH SCH ×2 (10:55→20:02)
[2023-05-15] MEDS: Fluconazole/Normal Saline 200 MG in Premix Bag 1 BAG IV SCH (11:00)
[2023-05-15] MEDS ORDERED: Piperacillin/Tazobactam 2.25 GM in Sodium Chloride 0.9% 50 ML IV SCH (14:00)
[2023-05-15] MEDS ORDERED: Vancomycin 1 GM SDV IV SCH (14:00)
[2023-05-15] MEDS ORDERED: Sodium Chloride 0.9% 1,000 ML IV SCH (14:00)
[2023-05-15] MEDS: Piperacillin/Tazobactam 3.375 GM in Sodium Chloride 0.9% 50 ML IV SCH ×2 (15:07→20:06)
[2023-05-15] MEDS: diphenhydrAMINE 25 MG Cap PO SCH (20:33)
[2023-05-16] MEDS: Piperacillin/Tazobactam 3.375 GM in Sodium Chloride 0.9% 50 ML IV SCH (03:00)
[2023-05-16] MEDS: Acetaminophen 650 MG Supp RECTAL PRN (04:59)
[2023-05-16] MEDS: Nystatin Susp 100,000 Unit/ML 5 ML UD Cup PO SCH ×4 (05:02→21:00)
[2023-05-16] MEDS ORDERED: fentaNYL 50 MCG/ML SDV IVPUSH ONE (05:31)
[2023-05-16] MEDS ORDERED: Alum Hydrox/Mag Hydrox/Simeth 15 ML, Lidocaine 2% 15 ML PO ONE ×2 (05:33)
[2023-05-16] MEDS ORDERED: fentaNYL 100 MCG/2 ML SDV ONE (05:45)
[2023-05-16 05:55] LABS: HEMOGLOBIN 10.1 g/dL (11.2-15.5); LYMPHOCYTES ABSOLUTE AUTO 0.33 K/uL (0.8-3.3); LYMPHOCYTES PERCENT AUTO 22.3 % (11.4-47.7); MEAN CORPUSCULAR HEMOGLOBIN 31.6 pg (31.6-35.5); MEAN CORPUSCULAR HGB CONC 32.6 g/dL (31.6-35.5); MEAN CORPUSCULAR VOLUME 96.9 fL (81.4-99.0); MONOCYTES ABSOLUTE AUTO 0.25 K/uL (0.20-0.90); MONOCYTES PERCENT AUTO 16.9 % (3.3-12.6); NEUTROPHILS PERCENT AUTO 60.8 % (40.0-78.1); PLATELET COUNT,PLT 121 K/uL (130-375); WHITE BLOOD CELL COUNT,WBC 1.5 K/uL (3.2-11.0)
[2023-05-16 06:08] LABS: INR 1.1; PROTHROMBIN TIME 11.5 sec (9.2-10.6)
[2023-05-16 06:14] LABS: ALANINE AMINOTRANSFERASE,ALT 51 U/L (12-78); ALBUMIN 2.2 g/dL (3.4-5.0); ALKALINE PHOSPHATASE 57 U/L (46-116); ASPARTATE AMNIOTRANSFERASE,AST 54 U/L (15-37); BILIRUBIN TOTAL 0.3 mg/dL (0.2-1.0); BLOOD UREA NITROGEN,BUN 31 mg/dL (7-18); CALCIUM 7.6 mg/dL (8.5-10.1); CARBON DIOXIDE,CO2 18 mmol/L (21-32); CHLORIDE,CL 105 mmol/L (100-108); CREATININE 0.9 mg/dL (0.6-1.0); EST CRCL DRUG DOSING (CG) 40.17 mL/min; ESTIMATED GFR 66 mL/min (>60); GLUCOSE RANDOM 91 mg/dL (74-106); POTASSIUM,K 3.5 mmol/L (3.6-5.2); PROTEIN TOTAL,TP 4.8 g/dL (6.4-8.2); SODIUM,NA 136 mmol/L (140-148)
[2023-05-16 06:15] LABS: A/G RATIO 0.9 (1.2-2.2); ANION GAP 16.5 mmol/L (5.0-14.0)
[2023-05-16] MEDS ORDERED: Sodium Phosphate,Monobasic/Sodium Phosphate,Dibasic Enema 133 ML Bottle RECTAL ONE (06:26)
[2023-05-16] MEDS ORDERED: Bisacodyl 10 MG Supp RECTAL ONE ×2 (06:27→15:11)
[2023-05-16] MEDS ORDERED: Potassium Chloride 10 MEQ in Premix Bag 1 BAG IV SCH (07:00)
[2023-05-16] MEDS: Potassium Chloride 10 MEQ in Premix Bag 1 BAG IV SCH ×4 (08:33→13:47)
[2023-05-16] MEDS: Lactobacillus Rhamnosus GG (Probiotic) Cap PO SCH ×2 (08:34→20:51)
[2023-05-16] MEDS: Oxybutynin 5 MG Tab PO SCH ×3 (08:34→20:51)
[2023-05-16] MEDS: Aspirin 81 MG Tab.Chew PO SCH (08:34)
[2023-05-16] MEDS: Enoxaparin 80 MG/0.8 ML Syringe SUBCUT SCH ×2 (08:34→19:09)
[2023-05-16] MEDS: Pantoprazole 40 MG Vial IVPUSH SCH ×2 (08:35→20:51)
[2023-05-16] MEDS: Sodium Chloride 0.9% 1,000 ML IV SCH ×4 (08:36→23:54)
[2023-05-16] MEDS ORDERED: Piperacillin/Tazobactam/Dext 3.375 GM in Premix Bag 1 BAG IV SCH (10:00)
[2023-05-16] MEDS: Fluconazole/Normal Saline 200 MG in Premix Bag 1 BAG IV SCH (10:05)
[2023-05-16] MEDS ORDERED: Iopamidol 612 MG/ML 100 ML Bottle IV ONE (10:22)
[2023-05-16] MEDS ORDERED: Sodium Chloride 0.9% 80 ML IV SCH (10:30)
[2023-05-16] MEDS: Benzocaine/Cetylpyridinium/Menthol Lozenge MUCMEM PRN (11:14)
[2023-05-16] MEDS: Metoprolol Tartrate 25 MG Tab PO SCH (11:46)
[2023-05-16] MEDS: Lisinopril 10 MG Tab PO SCH (11:47)
[2023-05-16] MEDS ORDERED: Polyethylene Glycol 3350 Powder 17 GM Packet PO ONE (15:11)
[2023-05-16] MEDS: oxyCODONE 5 MG Tab PO PRN (17:50)
[2023-05-16] MEDS ORDERED: Sodium Phosphate,Monobasic/Sodium Phosphate,Dibasic Enema 133 ML Bottle RECTAL PRN (18:00)
[2023-05-16] MEDS: Piperacillin/Tazobactam/Dext 3.375 GM in Premix Bag 1 BAG IV SCH ×2 (19:04→23:54)
[2023-05-16] MEDS: diphenhydrAMINE 25 MG Cap PO SCH (20:51)
[2023-05-17] MEDS: Acetaminophen 325 MG Tab PO PRN ×2 (02:55→23:58)
[2023-05-17] MEDS: oxyCODONE 5 MG Tab PO PRN ×2 (02:55→12:59)
[2023-05-17] MEDS: Acetaminophen 650 MG Supp RECTAL PRN (03:07)
[2023-05-17 05:34] LABS: HEMATOCRIT 24.7 % (34.3-46.0); HEMOGLOBIN 7.9 g/dL (11.2-15.5); MEAN CORPUSCULAR HEMOGLOBIN 28.8 pg (31.6-35.5); MEAN CORPUSCULAR VOLUME 90.1 fL (81.4-99.0); RED BLOOD CELL COUNT 2.74 M/uL (3.77-5.24)
[2023-05-17 05:51] LABS: INR 1.2; PROTHROMBIN TIME 12.2 sec (9.2-10.6)
[2023-05-17 05:53] LABS: CALCIUM 7.4 mg/dL (8.5-10.1); CREATININE 0.7 mg/dL (0.6-1.0); EST CRCL DRUG DOSING (CG) 51.65 mL/min; POTASSIUM,K 3.3 mmol/L (3.6-5.2)
[2023-05-17 05:54] LABS: ANION GAP 15.3 mmol/L (5.0-14.0)
[2023-05-17] MEDS: Nystatin Susp 100,000 Unit/ML 5 ML UD Cup PO SCH ×4 (06:25→20:43)
[2023-05-17] MEDS: Piperacillin/Tazobactam/Dext 3.375 GM in Premix Bag 1 BAG IV SCH ×3 (06:35→18:44)
[2023-05-17] MEDS ORDERED: Bupivacaine 0.5% 50 ML MDV ONE (06:37)
[2023-05-17] MEDS ORDERED: Lidocaine 1% with EPINEPHrine 1:100,000 50 ML MDV ONE (06:37)
[2023-05-17] MEDS: Potassium Chloride 10 MEQ in Premix Bag 1 BAG IV SCH ×2 (08:44→09:49)
[2023-05-17] MEDS: Magnesium Sulfate/Water 2 GM in Premix Bag 1 BAG IV SCH ×2 (08:48→14:50)
[2023-05-17] MEDS: Pantoprazole 40 MG Vial IVPUSH SCH ×2 (08:54→20:35)
[2023-05-17] MEDS: Fluconazole/Normal Saline 200 MG in Premix Bag 1 BAG IV SCH (10:39)
[2023-05-17] MEDS: Lactobacillus Rhamnosus GG (Probiotic) Cap PO SCH ×2 (11:03→20:31)
[2023-05-17] MEDS: Aspirin 81 MG Tab.Chew PO SCH (11:03)
[2023-05-17] MEDS: Oxybutynin 5 MG Tab PO SCH ×3 (11:04→20:34)
[2023-05-17] MEDS: Magnesium Oxide 400 MG Tab PO SCH ×2 (11:04→20:31)
[2023-05-17] MEDS: Metoprolol Tartrate 25 MG Tab PO SCH ×2 (11:04→20:31)
[2023-05-17] MEDS: Lisinopril 10 MG Tab PO SCH (11:04)
[2023-05-17 11:09] LABS: HEMATOCRIT 26.5 % (34.3-46.0); HEMOGLOBIN 8.3 g/dL (11.2-15.5); MEAN CORPUSCULAR HEMOGLOBIN 28.4 pg (31.6-35.5); MEAN CORPUSCULAR HGB CONC 31.3 g/dL (31.6-35.5); MEAN CORPUSCULAR VOLUME 90.8 fL (81.4-99.0); RED BLOOD CELL COUNT 2.92 M/uL (3.77-5.24); WHITE BLOOD CELL COUNT,WBC 5.8 K/uL (3.2-11.0)
[2023-05-17 11:28] LABS: INR 1.2; PROTHROMBIN TIME 11.9 sec (9.2-10.6)
[2023-05-17] MEDS ORDERED: Lidocaine 1% 10 ML MDV INJECT ONE (11:30)
[2023-05-17 12:18] LABS: BODY FLUID TYPE THORACENTESIS FLUID
[2023-05-17 12:47] LABS: AMYLASE,BODY FLUID 12 U/L
[2023-05-17 12:51] LABS: LACTATE DEHYDROGENASE,BODY FL 464 IU/L; PROTEIN,BODY FLUID 2.1 g/dL
[2023-05-17 12:52] LABS: AMYLASE BODY FLUID TYPE THORACENTESIS FLUID
[2023-05-17 13:40] LABS: MONONUCLEAR, BODY FLUID 84 %; POLYMORPHONUCLEAR, BODY FLUID 16 %; RBC,BODY FLUID 1530 /ul; WBC BODY FLUID 1666 /ul
[2023-05-17] MEDS: diphenhydrAMINE 25 MG Cap PO SCH (20:43)
[2023-05-17] MEDS: Sodium Chloride 0.9% 1,000 ML IV SCH (23:08)
[2023-05-18] MEDS: Piperacillin/Tazobactam/Dext 3.375 GM in Premix Bag 1 BAG IV SCH ×4 (00:55→18:04)
[2023-05-18] MEDS: Nystatin Susp 100,000 Unit/ML 5 ML UD Cup PO SCH ×5 (01:01→22:24)
[2023-05-18 05:20] LABS: HEMOGLOBIN 7.7 g/dL (11.2-15.5); MEAN CORPUSCULAR HEMOGLOBIN 28.8 pg (31.6-35.5); MEAN CORPUSCULAR HGB CONC 32.1 g/dL (31.6-35.5); MEAN CORPUSCULAR VOLUME 89.9 fL (81.4-99.0); RED BLOOD CELL COUNT 2.67 M/uL (3.77-5.24); WHITE BLOOD CELL COUNT,WBC 5.8 K/uL (3.2-11.0)
[2023-05-18 05:49] LABS: CALCIUM 7.3 mg/dL (8.5-10.1); CREATININE 0.6 mg/dL (0.6-1.0); EST CRCL DRUG DOSING (CG) 60.26 mL/min; MAGNESIUM 2.1 mg/dL (1.8-2.4); POTASSIUM,K 3.6 mmol/L (3.6-5.2); VANCOMYCIN RANDOM 14.5 ug/mL (0.0-50.0)
[2023-05-18 05:58] LABS: ANION GAP 11.6 mmol/L (5.0-14.0)
[2023-05-18] MEDS: oxyCODONE 5 MG Tab PO PRN (08:00)
[2023-05-18] MEDS: Aspirin 81 MG Tab.Chew PO SCH (08:01)
[2023-05-18] MEDS: Lactobacillus Rhamnosus GG (Probiotic) Cap PO SCH ×2 (08:01→22:19)
[2023-05-18] MEDS: Oxybutynin 5 MG Tab PO SCH ×3 (08:02→22:24)
[2023-05-18] MEDS: Metoprolol Tartrate 25 MG Tab PO SCH ×2 (08:02→22:20)
[2023-05-18] MEDS: Magnesium Oxide 400 MG Tab PO SCH ×2 (08:02→22:24)
[2023-05-18] MEDS: Pantoprazole 40 MG Vial IVPUSH SCH ×2 (08:03→22:24)
[2023-05-18] MEDS: Lisinopril 10 MG Tab PO SCH (08:03)
[2023-05-18] MEDS ORDERED: Enoxaparin 40 MG/0.4 ML Syringe SUBCUT ONE (09:00)
[2023-05-18] MEDS: Fluconazole/Normal Saline 200 MG in Premix Bag 1 BAG IV SCH (11:01)
[2023-05-18] MEDS ORDERED: Iopamidol 612 MG/ML 100 ML Bottle IV ONE (11:38)
[2023-05-18] MEDS ORDERED: Sodium Chloride 0.9% 80 ML IV SCH (11:45)
[2023-05-18] MEDS ORDERED: Acetaminophen Soln 650 MG/20.3 ML UD Cup PO PRN (15:24)
[2023-05-18 16:57] LABS: MEAN CORPUSCULAR HEMOGLOBIN 28.8 pg (31.6-35.5); MEAN CORPUSCULAR VOLUME 89.9 fL (81.4-99.0); RED BLOOD CELL COUNT 2.78 M/uL (3.77-5.24); WHITE BLOOD CELL COUNT,WBC 6.3 K/uL (3.2-11.0)
[2023-05-18] MEDS: Enoxaparin 80 MG/0.8 ML Syringe SUBCUT SCH (22:18)
[2023-05-18] MEDS: diphenhydrAMINE 25 MG/10 ML Cup PO SCH (22:20)
[2023-05-19] MEDS: Piperacillin/Tazobactam/Dext 3.375 GM in Premix Bag 1 BAG IV SCH ×5 (01:22→23:46)
[2023-05-19 06:04] LABS: HEMATOCRIT 23.5 % (34.3-46.0); HEMOGLOBIN 7.6 g/dL (11.2-15.5); MEAN CORPUSCULAR HEMOGLOBIN 28.7 pg (31.6-35.5); MEAN CORPUSCULAR HGB CONC 32.3 g/dL (31.6-35.5); MEAN CORPUSCULAR VOLUME 88.7 fL (81.4-99.0); RED BLOOD CELL COUNT 2.65 M/uL (3.77-5.24); WHITE BLOOD CELL COUNT,WBC 5.3 K/uL (3.2-11.0)
[2023-05-19] MEDS: Nystatin Susp 100,000 Unit/ML 5 ML UD Cup PO SCH ×5 (06:08→22:01)
[2023-05-19 06:25] LABS: CALCIUM 7.2 mg/dL (8.5-10.1); CREATININE 0.6 mg/dL (0.6-1.0); EST CRCL DRUG DOSING (CG) 60.26 mL/min; POTASSIUM,K 3.6 mmol/L (3.6-5.2)
[2023-05-19 06:40] LABS: ANION GAP 13.6 mmol/L (5.0-14.0)
[2023-05-19] MEDS: Enoxaparin 80 MG/0.8 ML Syringe SUBCUT SCH (08:22)
[2023-05-19] MEDS: Aspirin 81 MG Tab.Chew PO SCH (08:23)
[2023-05-19] MEDS: Magnesium Oxide 400 MG Tab PO SCH ×2 (08:24→20:40)
[2023-05-19] MEDS: Lactobacillus Rhamnosus GG (Probiotic) Cap PO SCH ×2 (08:24→20:38)
[2023-05-19] MEDS: Oxybutynin 5 MG Tab PO SCH ×3 (08:24→20:38)
[2023-05-19] MEDS: Metoprolol Tartrate 25 MG Tab PO SCH ×2 (08:24→20:39)
[2023-05-19] MEDS: Lisinopril 10 MG Tab PO SCH (08:25)
[2023-05-19] MEDS ORDERED: Pantoprazole 40 MG Tab.CR PO SCH (08:30)
[2023-05-19] MEDS: Apixaban 5 MG Tab PO SCH ×2 (09:25→20:39)
[2023-05-19] MEDS: Fluconazole/Normal Saline 200 MG in Premix Bag 1 BAG IV SCH (12:15)
[2023-05-19] MEDS ORDERED: Furosemide 20 MG/2 ML VIAL IVPUSH ONE (12:50)
[2023-05-19] MEDS: Scopalamine 1mg/3day Transdermal Patch TRDERM SCH (13:34)
[2023-05-19] MEDS: Benzocaine/Cetylpyridinium/Menthol Lozenge MUCMEM PRN (14:00)
[2023-05-19] MEDS: Pantoprazole 40 MG Delayed-Release Granules 1 Packet PO SCH (17:24)
[2023-05-19] MEDS: diphenhydrAMINE 25 MG/10 ML Cup PO SCH (20:37)
[2023-05-20] MEDS: Nystatin Susp 100,000 Unit/ML 5 ML UD Cup PO SCH ×4 (05:59→21:37)
[2023-05-20] MEDS: Piperacillin/Tazobactam/Dext 3.375 GM in Premix Bag 1 BAG IV SCH ×4 (05:59→23:39)
[2023-05-20 06:18] LABS: HEMATOCRIT 24.5 % (34.3-46.0); MEAN CORPUSCULAR HEMOGLOBIN 28.8 pg (31.6-35.5); MEAN CORPUSCULAR HGB CONC 32.7 g/dL (31.6-35.5); MEAN CORPUSCULAR VOLUME 88.1 fL (81.4-99.0); RED BLOOD CELL COUNT 2.78 M/uL (3.77-5.24); WHITE BLOOD CELL COUNT,WBC 5.4 K/uL (3.2-11.0)
[2023-05-20 06:31] LABS: CALCIUM 7.2 mg/dL (8.5-10.1); CREATININE 0.5 mg/dL (0.6-1.0); EST CRCL DRUG DOSING (CG) 72.31 mL/min
[2023-05-20 06:33] LABS: ANION GAP 12.8 mmol/L (5.0-14.0); POTASSIUM,K 2.8 mmol/L (3.6-5.2)
[2023-05-20] MEDS ORDERED: Potassium Chloride 20 MEQ Tab.ER PO ONE ×2 (06:39→12:00)
[2023-05-20] MEDS ORDERED: Potassium Chloride 10 MEQ in Premix Bag 4 BAG IV SCH (07:00)
[2023-05-20] MEDS ORDERED: Furosemide 20 MG/2 ML VIAL IVPUSH ONE (08:00)
[2023-05-20] MEDS: Potassium Chloride 10 MEQ in Premix Bag 1 BAG IV SCH ×4 (08:01→16:04)
[2023-05-20] MEDS: Pantoprazole 40 MG Delayed-Release Granules 1 Packet PO SCH ×2 (08:15→15:52)
[2023-05-20] MEDS: Aspirin 81 MG Tab.Chew PO SCH (08:15)
[2023-05-20] MEDS: Magnesium Oxide 400 MG Tab PO SCH ×2 (08:16→21:35)
[2023-05-20] MEDS: Apixaban 5 MG Tab PO SCH ×2 (08:16→21:34)
[2023-05-20] MEDS: Lactobacillus Rhamnosus GG (Probiotic) Cap PO SCH ×2 (08:16→21:33)
[2023-05-20] MEDS: Oxybutynin 5 MG Tab PO SCH ×3 (08:17→21:36)
[2023-05-20] MEDS: VERIFY SCOP PATCH SCH (08:17)
[2023-05-20] MEDS: Lisinopril 10 MG Tab PO SCH (08:18)
[2023-05-20] MEDS: Metoprolol Tartrate 25 MG Tab PO SCH ×2 (08:20→21:36)
[2023-05-20] MEDS: Fluconazole/Normal Saline 200 MG in Premix Bag 1 BAG IV SCH (10:59)
[2023-05-20] MEDS ORDERED: Vancomycin 1 GM SDV IV SCH (17:00)
[2023-05-20] MEDS: oxyCODONE 5 MG Tab PO PRN (21:29)
[2023-05-20] MEDS: diphenhydrAMINE 25 MG/10 ML Cup PO SCH (21:31)
[2023-05-21 04:29] LABS: HEMATOCRIT 24.7 % (34.3-46.0); HEMOGLOBIN 7.9 g/dL (11.2-15.5); MEAN CORPUSCULAR HEMOGLOBIN 28.5 pg (31.6-35.5); MEAN CORPUSCULAR VOLUME 89.2 fL (81.4-99.0); RED BLOOD CELL COUNT 2.77 M/uL (3.77-5.24); WHITE BLOOD CELL COUNT,WBC 6.1 K/uL (3.2-11.0)
[2023-05-21 05:23] LABS: CALCIUM 7.4 mg/dL (8.5-10.1); CREATININE 0.6 mg/dL (0.6-1.0); EST CRCL DRUG DOSING (CG) 60.26 mL/min; POTASSIUM,K 3.8 mmol/L (3.6-5.2)
[2023-05-21 05:31] LABS: ANION GAP 10.8 mmol/L (5.0-14.0)
[2023-05-21] MEDS: Nystatin Susp 100,000 Unit/ML 5 ML UD Cup PO SCH ×4 (05:32→21:10)
[2023-05-21] MEDS: Piperacillin/Tazobactam/Dext 3.375 GM in Premix Bag 1 BAG IV SCH (07:07)
[2023-05-21] MEDS: Lactobacillus Rhamnosus GG (Probiotic) Cap PO SCH ×2 (08:28→21:06)
[2023-05-21] MEDS: Aspirin 81 MG Tab.Chew PO SCH (08:28)
[2023-05-21] MEDS: Pantoprazole 40 MG Delayed-Release Granules 1 Packet PO SCH ×2 (08:28→16:51)
[2023-05-21] MEDS: VERIFY SCOP PATCH SCH (08:29)
[2023-05-21] MEDS: Magnesium Oxide 400 MG Tab PO SCH ×2 (08:29→21:09)
[2023-05-21] MEDS: Oxybutynin 5 MG Tab PO SCH ×3 (08:29→21:10)
[2023-05-21] MEDS: Apixaban 5 MG Tab PO SCH ×2 (08:29→21:07)
[2023-05-21] MEDS: Lisinopril 10 MG Tab PO SCH (08:29)
[2023-05-21] MEDS: Metoprolol Tartrate 25 MG Tab PO SCH ×2 (08:29→21:07)
[2023-05-21] MEDS: Fluconazole/Normal Saline 200 MG in Premix Bag 1 BAG IV SCH (10:15)
[2023-05-21] MEDS ORDERED: Furosemide 20 MG/2 ML VIAL IVPUSH ONE (11:05)
[2023-05-21] MEDS: Piperacillin/Tazobactam 3.375 GM in Sodium Chloride 0.9% 50 ML IV SCH ×2 (11:35→17:48)
[2023-05-21] MEDS: Benzocaine/Cetylpyridinium/Menthol Lozenge MUCMEM PRN (14:56)
[2023-05-21] MEDS: diphenhydrAMINE 25 MG/10 ML Cup PO SCH (21:06)
[2023-05-22] MEDS: Piperacillin/Tazobactam 3.375 GM in Sodium Chloride 0.9% 50 ML IV SCH ×5 (00:07→23:47)
[2023-05-22] MEDS: Nystatin Susp 100,000 Unit/ML 5 ML UD Cup PO SCH ×4 (05:41→21:07)
[2023-05-22 06:02] LABS: HEMATOCRIT 25.5 % (34.3-46.0); HEMOGLOBIN 8.2 g/dL (11.2-15.5); MEAN CORPUSCULAR HEMOGLOBIN 28.5 pg (31.6-35.5); MEAN CORPUSCULAR HGB CONC 32.2 g/dL (31.6-35.5); MEAN CORPUSCULAR VOLUME 88.5 fL (81.4-99.0); RED BLOOD CELL COUNT 2.88 M/uL (3.77-5.24); WHITE BLOOD CELL COUNT,WBC 6.4 K/uL (3.2-11.0)
[2023-05-22] MEDS: Pantoprazole 40 MG Delayed-Release Granules 1 Packet PO SCH ×2 (08:17→16:48)
[2023-05-22] MEDS: Metoprolol Tartrate 25 MG Tab PO SCH ×2 (08:18→20:15)
[2023-05-22] MEDS: Aspirin 81 MG Tab.Chew PO SCH (08:18)
[2023-05-22] MEDS: Magnesium Oxide 400 MG Tab PO SCH ×2 (08:18→20:15)
[2023-05-22] MEDS: Apixaban 5 MG Tab PO SCH ×2 (08:18→20:16)
[2023-05-22] MEDS: Lactobacillus Rhamnosus GG (Probiotic) Cap PO SCH ×2 (08:18→20:17)
[2023-05-22] MEDS: Oxybutynin 5 MG Tab PO SCH ×3 (08:18→20:17)
[2023-05-22] MEDS: VERIFY SCOP PATCH SCH (08:19)
[2023-05-22] MEDS: Lisinopril 10 MG Tab PO SCH (08:19)
[2023-05-22] MEDS: Fluconazole/Normal Saline 200 MG in Premix Bag 1 BAG IV SCH (10:13)
[2023-05-22] MEDS: oxyCODONE 5 MG Tab PO PRN (11:31)
[2023-05-22] MEDS: Scopalamine 1mg/3day Transdermal Patch TRDERM SCH (13:19)
[2023-05-22] MEDS: Trolamine Salicylate/Aloe Vera 10% Crm 85 GM Tube TOP PRN (18:18)
[2023-05-22] MEDS: diphenhydrAMINE 25 MG/10 ML Cup PO SCH (20:17)
[2023-05-23] MEDS: Nystatin Susp 100,000 Unit/ML 5 ML UD Cup PO SCH ×5 (05:24→21:51)
[2023-05-23] MEDS: Piperacillin/Tazobactam 3.375 GM in Sodium Chloride 0.9% 50 ML IV SCH ×2 (05:30→15:09)
[2023-05-23] MEDS: Trolamine Salicylate/Aloe Vera 10% Crm 85 GM Tube TOP PRN (07:43)
[2023-05-23] MEDS: Pantoprazole 40 MG Delayed-Release Granules 1 Packet PO SCH ×2 (07:47→15:41)
[2023-05-23] MEDS: Aspirin 81 MG Tab.Chew PO SCH (09:45)
[2023-05-23] MEDS: Lisinopril 10 MG Tab PO SCH (09:46)
[2023-05-23] MEDS: Lactobacillus Rhamnosus GG (Probiotic) Cap PO SCH ×2 (09:46→21:46)
[2023-05-23] MEDS: Apixaban 5 MG Tab PO SCH ×2 (09:46→21:45)
[2023-05-23] MEDS: Magnesium Oxide 400 MG Tab PO SCH ×2 (09:47→21:45)
[2023-05-23] MEDS: Metoprolol Tartrate 25 MG Tab PO SCH ×2 (09:47→21:46)
[2023-05-23] MEDS: Oxybutynin 5 MG Tab PO SCH ×3 (09:47→21:45)
[2023-05-23] MEDS: VERIFY SCOP PATCH SCH (09:48)
[2023-05-23] MEDS: Amoxicillin/Clavulanate K 875-125 MG Tab PO SCH (17:35)
[2023-05-23] MEDS: diphenhydrAMINE 25 MG/10 ML Cup PO SCH (21:50)
[2023-05-24] MEDS: oxyCODONE 5 MG Tab PO PRN ×2 (04:10→18:40)
[2023-05-24] MEDS: Trolamine Salicylate/Aloe Vera 10% Crm 85 GM Tube TOP PRN (04:11)
[2023-05-24] MEDS: Nystatin Susp 100,000 Unit/ML 5 ML UD Cup PO SCH ×2 (06:18→10:39)
[2023-05-24] MEDS: Amoxicillin/Clavulanate K 875-125 MG Tab PO SCH ×2 (06:19→17:11)
[2023-05-24] MEDS ORDERED: Furosemide 20 MG/2 ML VIAL IVPUSH ONE (06:45)
[2023-05-24] MEDS: Apixaban 5 MG Tab PO SCH ×2 (08:11→20:42)
[2023-05-24] MEDS: Magnesium Oxide 400 MG Tab PO SCH ×2 (08:11→20:42)
[2023-05-24] MEDS: Pantoprazole 40 MG Delayed-Release Granules 1 Packet PO SCH ×2 (08:11→17:11)
[2023-05-24] MEDS: Lactobacillus Rhamnosus GG (Probiotic) Cap PO SCH ×2 (08:11→20:42)
[2023-05-24] MEDS: Aspirin 81 MG Tab.Chew PO SCH (08:11)
[2023-05-24] MEDS: Oxybutynin 5 MG Tab PO SCH ×3 (08:12→20:42)
[2023-05-24] MEDS: VERIFY SCOP PATCH SCH (08:12)
[2023-05-24] MEDS: Lisinopril 10 MG Tab PO SCH (08:15)
[2023-05-24] MEDS: Metoprolol Tartrate 25 MG Tab PO SCH ×2 (08:16→20:42)
[2023-05-24] MEDS ORDERED: Saliva Substitute Oral Spray 120 ML Bottle MUCMEM PRN ×2 (10:19→10:41)
[2023-05-24] MEDS: diphenhydrAMINE 25 MG/10 ML Cup PO SCH (20:42)
[2023-05-25] MEDS: Amoxicillin/Clavulanate K 875-125 MG Tab PO SCH (05:37)
[2023-05-25 05:49] LABS: HEMOGLOBIN 8.2 g/dL (11.2-15.5); MEAN CORPUSCULAR HEMOGLOBIN 28.6 pg (31.6-35.5); MEAN CORPUSCULAR HGB CONC 31.5 g/dL (31.6-35.5); MEAN CORPUSCULAR VOLUME 90.6 fL (81.4-99.0); RED BLOOD CELL COUNT 2.87 M/uL (3.77-5.24); WHITE BLOOD CELL COUNT,WBC 6.6 K/uL (3.2-11.0)
[2023-05-25 06:01] LABS: CALCIUM 7.4 mg/dL (8.5-10.1); CREATININE 0.6 mg/dL (0.6-1.0); EST CRCL DRUG DOSING (CG) 60.26 mL/min; POTASSIUM,K 3.7 mmol/L (3.6-5.2)
[2023-05-25 06:22] LABS: ANION GAP 6.7 mmol/L (5.0-14.0)
[2023-05-25] MEDS: Pantoprazole 40 MG Delayed-Release Granules 1 Packet PO SCH (08:05)
[2023-05-25] MEDS: Lactobacillus Rhamnosus GG (Probiotic) Cap PO SCH (08:42)
[2023-05-25] MEDS: Aspirin 81 MG Tab.Chew PO SCH (08:42)
[2023-05-25] MEDS: Apixaban 5 MG Tab PO SCH (08:43)
[2023-05-25] MEDS: Lisinopril 10 MG Tab PO SCH (08:43)
[2023-05-25] MEDS: Magnesium Oxide 400 MG Tab PO SCH (08:43)
[2023-05-25] MEDS: Oxybutynin 5 MG Tab PO SCH (08:43)
[2023-05-25] MEDS: Metoprolol Tartrate 25 MG Tab PO SCH (08:45)
[2023-05-25] MEDS: VERIFY SCOP PATCH SCH (08:46)
[2023-05-26] MEDS ORDERED: Apixaban 5 MG Tab PO SCH (09:00)
== END 2023-05-25 11:27 | DRG 871 ==
LOC: JP.ED 22:40 → JP.MS 05-14 03:50 → OBSVTOIN 05-14 09:57
PROVIDERS: ADMIT Registered Nurse; ATTEND Internal Medicine
PROC: 0JPV3WZ Removal of Totally Implantable Vascular Access Device from Upper Extremity Subcutaneous Tissue and Fascia, Percutaneous Approach (ICD-10-PCS; 2023-05-17)
PROC: 4A033R1 Measurement of Arterial Saturation, Peripheral, Percutaneous Approach (ICD-10-PCS; 2023-05-17)
PROC: 3E03329 Introduction of Other Anti-infective into Peripheral Vein, Percutaneous Approach (ICD-10-PCS; 2023-05-17)
PROC: 0W993ZZ Drainage of Right Pleural Cavity, Percutaneous Approach (ICD-10-PCS; principal; 2023-05-17 07:15)
DX: A41.9 Sepsis, unspecified organism (principal); I26.99 Other pulmonary embolism without acute cor pulmonale; R41.0 Disorientation, unspecified; B37.0 Candidal stomatitis; B37.81 Candidal esophagitis; J90 Pleural effusion, not elsewhere classified; I82.402 Acute embolism and thrombosis of unspecified deep veins of left lower extremity; G93.49 Other encephalopathy; I95.9 Hypotension, unspecified; D72.819 Decreased white blood cell count, unspecified; L27.0 Generalized skin eruption due to drugs and medicaments taken internally; T36.4X5A Adverse effect of tetracyclines, initial encounter; J44.89 Other specified chronic obstructive pulmonary disease; E78.00 Pure hypercholesterolemia, unspecified; G62.9 Polyneuropathy, unspecified; M48.061 Spinal stenosis, lumbar region without neurogenic claudication; M47.816 Spondylosis without myelopathy or radiculopathy, lumbar region; K59.00 Constipation, unspecified; E86.0 Dehydration; R53.1 Weakness; R13.19 Other dysphagia; D69.59 Other secondary thrombocytopenia; T45.515A Adverse effect of anticoagulants, initial encounter; Z88.8 Allergy status to other drugs, medicaments and biological substances; Z90.2 Acquired absence of lung [part of]; Z86.711 Personal history of pulmonary embolism; I10 Essential (primary) hypertension; Z88.5 Allergy status to narcotic agent; Z88.1 Allergy status to other antibiotic agents; Z79.82 Long term (current) use of aspirin; Z86.718 Personal history of other venous thrombosis and embolism; Z85.118 Personal history of other malignant neoplasm of bronchus and lung; Z86.010 Personal history of colon polyps; Z20.822 Contact with and (suspected) exposure to COVID-19; Z86.73 Personal history of transient ischemic attack (TIA), and cerebral infarction without residual deficits; Z11.52 Encounter for screening for COVID-19; Z79.899 Other long term (current) drug therapy; Z79.01 Long term (current) use of anticoagulants; Z90.710 Acquired absence of both cervix and uterus
CPT/HCPCS: 0241U; 32555; 36415; 36600; 70450; 70491; 71045; 71260; 74022; 74177; 80048; 80053; 80202; 81001; 82150; 82803; 83605; 83615; 83735; 84132; 84145; 84157; 84443; 85025; 85027; 85610; 86850; 86900; 86901; 87040; 87070; 87102; 87205; 87220; 88112; 88305; 89050; 93005; 93010; 93306; 96361; 96365; 96372; 96375; 97110; 97161; 97165; 97530; 97535; 99232; 99239; 99284; 99285; 96374; 99223; A9270-GY; C1729; C9113; G0378; J0696; J1200; J1450; J1642; J1650; J1940; J2543; J2920; J3010; J3370; J3430; J3475; J3480; J3490; J7030; J7050; Q9967

== ENCOUNTER 2023-05-31 06:58 | Emergency (ER) | payer MEDICARE ==
[2023-05-31 07:43] LABS: BASOPHILS ABSOLUTE AUTO 0.03 K/uL (0.00-0.10); BASOPHILS PERCENT AUTO 0.6 % (0.1-1.3); EOSINOPHILS ABSOLUTE AUTO 0.04 K/uL (0.00-0.40); EOSINOPHILS PERCENT AUTO 0.9 % (0.0-5.4); HEMATOCRIT 31.1 % (34.3-46.0); IMMATURE GRAN PERCENT AUTO 0.4 % (0.0-0.7); LYMPHOCYTES ABSOLUTE AUTO 1.18 K/uL (0.8-3.3); LYMPHOCYTES PERCENT AUTO 25.3 % (11.4-47.7); MEAN CORPUSCULAR HGB CONC 32.2 g/dL (31.6-35.5); MEAN CORPUSCULAR VOLUME 90.1 fL (81.4-99.0); MONOCYTES ABSOLUTE AUTO 0.65 K/uL (0.20-0.90); MONOCYTES PERCENT AUTO 13.9 % (3.3-12.6); NEUTROPHILS ABSOLUTE AUTO 2.75 K/uL (1.0-7.6); NEUTROPHILS PERCENT AUTO 58.9 % (40.0-78.1); PLATELET COUNT,PLT 180 K/uL (130-375); RED BLOOD CELL COUNT 3.45 M/uL (3.77-5.24); WHITE BLOOD CELL COUNT,WBC 4.7 K/uL (3.2-11.0)
[2023-05-31 07:53] LABS: IMMATURE GRAN ABSOLUTE AUTO 0.02 K/uL (0.00-0.23)
[2023-05-31 08:00] LABS: A/G RATIO 0.8 (1.2-2.2); ALANINE AMINOTRANSFERASE,ALT 48 U/L (12-78); ALBUMIN 2.3 g/dL (3.4-5.0); ALKALINE PHOSPHATASE 94 U/L (46-116); ASPARTATE AMNIOTRANSFERASE,AST 46 U/L (15-37); BILIRUBIN TOTAL 0.6 mg/dL (0.2-1.0); BLOOD UREA NITROGEN,BUN 9 mg/dL (7-18); CALCIUM 7.6 mg/dL (8.5-10.1); CARBON DIOXIDE,CO2 29 mmol/L (21-32); CHLORIDE,CL 100 mmol/L (100-108); CREATININE 0.6 mg/dL (0.6-1.0); ESTIMATED GFR 93 mL/min (>60); GLUCOSE RANDOM 86 mg/dL (74-106); POTASSIUM,K 4.1 mmol/L (3.6-5.2); PROTEIN TOTAL,TP 5.2 g/dL (6.4-8.2); SODIUM,NA 135 mmol/L (140-148)
[2023-05-31 08:03] LABS: ANION GAP 10.1 mmol/L (5.0-14.0)
[2023-05-31 08:05] LABS: APPEARANCE,URINE CLEAR (CLEAR); BILIRUBIN,URINE NEGATIVE (NEGATIVE); COLOR,URINE YELLOW (YELLOW); GLUCOSE,URINE NEGATIVE (NEGATIVE); KETONES,URINE TRACE mg/dL (NEGATIVE); LEUKOCYTE ESTERASE,URINE NEGATIVE (NEGATIVE); NITRITE,URINE NEGATIVE (NEGATIVE); OCCULT BLOOD,URINE NEGATIVE (NEGATIVE); PH,URINE 8.5 (5.0-8.0); PROTEIN,URINE NEGATIVE (NEGATIVE)
[2023-05-31 08:11] LABS: AMORPHOUS SEDIMENT,URINE RARE; BACTERIA,URINE RARE; EPITHELIAL CELLS,URINE FEW; MUCUS,URINE FEW; RBC,URINE 0-5 (0-5); WBC,URINE 0-5 (0-5)
[2023-05-31] MEDS ORDERED: Acetaminophen/HYDROcodone 325-5 MG Tab PO ONE (08:16)
== END 2023-05-31 09:40 | disposition home or self-care (01) ==
LOC: JP.ED 06:58
DX: I26.99 Other pulmonary embolism without acute cor pulmonale (principal); M54.6 Pain in thoracic spine; J90 Pleural effusion, not elsewhere classified; Z85.118 Personal history of other malignant neoplasm of bronchus and lung; I10 Essential (primary) hypertension; Z86.73 Personal history of transient ischemic attack (TIA), and cerebral infarction without residual deficits; Z90.49 Acquired absence of other specified parts of digestive tract; Z90.710 Acquired absence of both cervix and uterus; Z79.82 Long term (current) use of aspirin; Z79.899 Other long term (current) drug therapy; Z88.1 Allergy status to other antibiotic agents; Z88.5 Allergy status to narcotic agent
CPT/HCPCS: 36415; 71046; 80053; 81001; 84145; 84484; 85025; 93005; 99285; A9270

== ENCOUNTER 2024-09-12 11:42 | Emergency (ER) | payer MEDICARE ==
[2024-09-12] MEDS: Acetaminophen 500 MG Tab PO ONE (15:40)
[2024-09-12] MEDS: Cyclobenzaprine 10 MG Tab PO ONE (15:40)
== END 2024-09-12 16:24 | disposition home or self-care (01) ==
LOC: JP.ED 11:42
DX: S01.01XA Laceration without foreign body of scalp, initial encounter (principal); S90.01XA Contusion of right ankle, initial encounter; S80.01XA Contusion of right knee, initial encounter; S40.011A Contusion of right shoulder, initial encounter; S50.01XA Contusion of right elbow, initial encounter; E78.00 Pure hypercholesterolemia, unspecified; I10 Essential (primary) hypertension; Z88.8 Allergy status to other drugs, medicaments and biological substances; Z88.5 Allergy status to narcotic agent; Z79.82 Long term (current) use of aspirin; Z79.899 Other long term (current) drug therapy; Z79.01 Long term (current) use of anticoagulants; Z86.73 Personal history of transient ischemic attack (TIA), and cerebral infarction without residual deficits; W01.198A Fall on same level from slipping, tripping and stumbling with subsequent striking against other object, initial encounter; Y93.89 Activity, other specified
CPT/HCPCS: 70450; 72125; 73030; 73080; 73200; 73562; 73610; 73700; 76377; 99284; A9270

== ENCOUNTER 2025-03-07 09:42 | Emergency (ER) | payer MEDICARE ==
[2025-03-07] MEDS: Dexamethasone 4 MG/ML SDV INJECT ONE (10:19)
== END 2025-03-07 10:49 | disposition home or self-care (01) ==
LOC: JP.ED 09:42
DX: B02.29 Other postherpetic nervous system involvement (principal); I10 Essential (primary) hypertension; F17.200 Nicotine dependence, unspecified, uncomplicated; K21.9 Gastro-esophageal reflux disease without esophagitis; Z79.899 Other long term (current) drug therapy; Z88.8 Allergy status to other drugs, medicaments and biological substances; Z90.710 Acquired absence of both cervix and uterus
CPT/HCPCS: 99284; J0665; J1100